=== PATIENT | male | born 1975 | race Caucasian/White ===

== ENCOUNTER 2022-02-18 03:25 | Emergency (ER) | payer SELFPAY ==
[2022-02-18 03:30] VITALS: BP 140/86; PULSE 102; RESP 18; TEMP 36.8; O2SAT 99; BMI 23.9
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
[2022-02-18] MEDS: IBUPROFEN 400 MG TABLET 800 MG PO (04:51)
== END 2022-02-18 05:20 | disposition home or self-care (01) ==
PROVIDERS: Emergency Provider Emergency Medicine
DX: S05.12XA Contusion of eyeball and orbital tissues, left eye, initial encounter (principal); S00.432A Contusion of left ear, initial encounter; Y04.2XXA Assault by strike against or bumped into by another person, initial encounter
CPT/HCPCS: 70450; 70486; 72125; 99283